=== PATIENT | female | born 1985 | race Caucasian/White ===

== ENCOUNTER 2020-07-21 13:47 | Emergency (ER) | payer MEDICAID ==
--- NOTE | 2020-07-21 14:01 | EDM.PDOC ---
ED HPI GENERAL MEDICAL PROBLEM - General Chief Complaint: Cardiovascular Problem Stated Complaint: CHEST PAIN Time Seen by Provider: 07/21/20 14:02 Source of Information: Reports: Patient, Old Records, RN History Limitations: Reports: No Limitations - History of Present Illness INITIAL COMMENTS - FREE TEXT/NARRATIVE: 35 yo female presents with CP for about an hour that is improving as she arrives. Pain felt initially like her GERD, but then moved from substernally leftward. Had some transient nausea. No SOB or diaphoresis. No personal hx of CAD. Has risk factors including obesity and suboptimally controlled HTN. Has not missed any of her doses of her BP meds. Had a BP check in the clinic in early June with a BP of 150/90. Is not able to tell me the names of her meds. Smokes cigarettes and drinks a lot of Mtn Dew. 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) (none) - Related Data Allergies Allergy/AdvReac Type Severity Reaction Status Date / Time acetaminophen Allergy Hives Verified 09/10/16 03:33 [From Tylenol-Codeine #3] codeine phosphate Allergy Hives Verified 09/10/16 03:33 [From Tylenol-Codeine #3] fenofibrate Allergy Anaphylactic Verified 07/21/20 14:17 Shock hydrocodone Allergy Itching Verified 07/21/20 14:17 metronidazole Allergy Headache Verified 07/21/20 14:17 minocycline Allergy Swelling Verified 07/21/20 14:17 sumatriptan [From Imitrex] Allergy Swollen Verified 09/10/16 03:33 Tongue sumatriptan succinate Allergy Swollen Verified 09/10/16 03:33 [From Imitrex] Tongue topiramate [From Topamax] Allergy Hives Verified 09/10/16 03:33 Home Meds: Home Meds Albuterol Sulfate [Albuterol Sulfate Hfa] 1 inh INH Q4HR PRN 07/21/20 [History] Gabapentin [Neurontin] 1 tab PO DAILY 07/21/20 [History] Gabapentin [Neurontin] 2 tab PO BEDTIME 07/21/20 [History] Levothyroxine 1 tab PO DAILY 07/21/20 [History] Losartan [Cozaar] 75 mg PO DAILY 07/21/20 [History] Meclizine [Antivert] 1 tab PO TID PRN 07/21/20 [History] Nortriptyline 25 mg PO DAILY 07/21/20 [History] Pantoprazole Sodium [Protonix] 1 tab PO DAILY 07/21/20 [History] atorvaSTATin Calcium [Lipitor] 2 tab PO DAILY 07/21/20 [History] tiZANidine [Zanaflex] 1 tab PO BID PRN 07/21/20 [History] Past Medical History - Past Health History Medical/Surgical History: Denies Medical/Surgical History HEENT History: Reports: Sinusitis Respiratory History: Reports: Other (See Below) Other Respiratory History: COUGH; HAS BEEN TAKING TESSALON PEARLS NEEDED Gastrointestinal History: Reports: Hemorrhoids 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: Psychiatric History: Reports: Anxiety, Depression Endocrine/Metabolic History: Reports: Hyperthyroidism - Past Surgical History HEENT Surgical History: Reports: Myringotomy w Tube(s), Tonsillectomy, Other (See Below) GI Surgical History: Reports: Other (See Below) Female Surgical History: Reports: Section, Hysterectomy Social & Family History - Family History Family Medical History: No Pertinent Family History - Caffeine Use Caffeine Use: Reports: Soda ED ROS GENERAL - Review of Systems Review Of Systems: See Below Constitutional: Reports: No Symptoms HEENT: Reports: No Symptoms Respiratory: Reports: No Symptoms Cardiovascular: Reports: Chest Pain Endocrine: Reports: No Symptoms GI/Abdominal: Reports: Nausea. Denies: Abdominal Pain, Diarrhea, Vomiting : Reports: No Symptoms Musculoskeletal: Reports: No Symptoms Skin: Reports: No Symptoms Neurological: Reports: No Symptoms Psychiatric: Reports: No Symptoms ED EXAM, GENERAL - Physical Exam Exam: See Below Exam Limited By: No Limitations General Appearance: Alert, WD/WN, No Apparent Distress, Obese Eye Exam: Bilateral Eye: Normal Inspection Ears: Normal External Exam, Normal Canal, Hearing Grossly Normal, Normal TMs Ear Exam: Bilateral Ear: Auricle Normal, Canal Normal Nose: Normal Inspection, No Blood Throat/Mouth: Normal Inspection, Normal Lips, Normal Oropharynx, Normal Voice, No Airway Compromise Head: Atraumatic, Normocephalic Neck: Normal Inspection Respiratory/Chest: No Respiratory Distress, Lungs Clear, Normal Breath Sounds, No Accessory Muscle Use, Chest Non-Tender Cardiovascular: Regular Rate, Rhythm, No Edema. No: Tachycardia GI/Abdominal: Soft, Non-Tender, No Distention Back Exam: Normal Inspection. No: CVA Tenderness (R), CVA Tenderness (L) Extremities: Normal Inspection, Normal Range of Motion, Non-Tender, No Pedal Edema Neurological: Alert, Oriented, CN II-XII Intact, Normal Cognition, No Motor/Sensory Deficits Psychiatric: Normal Affect, Normal Mood Skin Exam: Warm, Dry, Intact, Normal Color, No Rash #1 Interpretation EKG Date: 07/21/20 Time: 13:50 Rhythm: NSR Rate (Beats/Min): 93 [place]: Normal QRS: Normal ST-T: Normal QT: Normal Comparison: NA - No Prior EKG #2 Interpretation EKG Date: 07/21/20 Time: 15:50 Rhythm: NSR Rate (Beats/Min): 86 [place]: Normal P-Wave: Present QRS: Normal ST-T: Normal QT: Normal Comparison: No Change Course - Vital Signs Last Recorded V/S: Last Vital Signs Temp Pulse Resp BP 148/101 H 07/21/20 15:15 Pulse Ox - Orders/Labs/Meds Orders: Active Orders 24 hr Category Date Time Status Cardiac Monitoring [RC] .As Directed Care 07/21/20 13:50 Active EKG Documentation Completion [RC] ASDIRECTED Care 07/21/20 13:50 Active EKG Documentation Completion [RC] ASDIRECTED Care 07/21/20 15:49 Active Losartan [Cozaar] Med 07/21/20 14:45 Active 25 mg PO DAILY EKG 12 Lead [EK] Routine Ther 07/21/20 13:49 Ordered EKG 12 Lead [EK] Routine Ther 07/21/20 15:49 Ordered Medication Orders Losartan Potassium (Cozaar) 25 mg PO DAILY GAVIN Last Admin: 07/21/20 15:15 Dose: 25 mg Documented by: DIFFCAL Labs: Laboratory Tests 07/21/20 07/21/20 07/21/20 Range/Units 14:20 14:20 14:20 WBC 7.9 (3.0-10.3) x10-3/uL RBC 5.27 H (3.60-5.20) x10(6)uL Hgb 15.1 (11.4-15.5) g/dL Hct 44.2 (34.2-48.2) % MCV 83.8 (76.7-100.5) fL MCH 28.6 (23.9-33.9) pg MCHC 34.1 (31.9-34.8) g/dL RDW 14.3 (12.3-16.5) % Plt Count 186 (151-488) x10(3)uL Sodium 139 (135-145) mmol/L Potassium 3.6 (3.5-5.3) mmol/L Chloride 101 (100-110) mmol/L Carbon Dioxide 30 (21-32) mmol/L BUN 8 (7-18) mg/dL Creatinine 0.8 (0.55-1.02) mg/dL Est Cr Clr Drug Dosing TNP Estimated GFR (MDRD) > 60 (>60) BUN/Creatinine Ratio 10.0 (9-20) Glucose 112 (80-116) mg/dL Calcium 9.2 (8.6-10.2) mg/dL Troponin I 12.1 (4.0-60.3) pg/mL 07/21/ Range/Units 16:08 WBC (3.0-10.3) x10-3/uL RBC (3.60-5.20) x10(6)uL Hgb (11.4-15.5) g/dL Hct (34.2-48.2) % MCV (76.7-100.5) fL MCH (23.9-33.9) pg MCHC (31.9-34.8) g/dL RDW (12.3-16.5) % Plt Count (151-488) x10(3)uL Sodium (135-145) mmol/L Potassium (3.5-5.3) mmol/L Chloride (100-110) mmol/L Carbon Dioxide (21-32) mmol/L BUN (7-18) mg/dL Creatinine (0.55-1.02) mg/dL Est Cr Clr Drug Dosing Estimated GFR (MDRD) (>60) BUN/Creatinine Ratio (9-20) Glucose (80-116) mg/dL Calcium (8.6-10.2) mg/dL Troponin I 12.0 (4.0-60.3) pg/mL Meds: Medications Generic Name Dose Route Start Last Admin Trade Name Freq PRN Reason Stop Dose Admin Losartan Potassium 25 mg 07/21/20 14:45 07/21/20 15:15 Cozaar PO 25 mg DAILY GAVIN Administration Discontinued Medications Generic Name Dose Route Start Last Admin Trade Name Freq PRN Reason Stop Dose Admin Al Hydroxide/Mg Hydroxide 30 ml 07/21/20 14:46 07/21/20 15:16 Mag-Al Susp PO 07/21/20 14:47 30 ml NOW STA Administration Al Hydroxide/Mg Hydroxide 30 ml 07/21/20 15:48 07/21/20 16:00 Mag-Al Susp PO 07/21/20 15:49 30 ml NOW STA Administration Aspirin 324 mg 07/21/20 14:45 07/21/20 15:16 Aspirin PO 07/21/20 14:46 324 mg ONETIME ONE Administration - Re-Assessments/Exams Free Text/Narrative Re-Assessment/Exam: 07/21/20 15:56 Had an increase in her "heart burn" sx's after receiving her ASA 324 mg and Maalox 30 ml. We gave her an additional dose of Maalox and repeated her EKG whic was normal without any evidence of ischemia. Departure - Departure Time of Disposition: 16:45 Disposition: Home, Self-Care 01 Condition: Fair Clinical Impression: GERD (gastroesophageal reflux disease) Qualifiers: Esophagitis presence: without esophagitis Qualified Code(s): K21.9 - Gastro- esophageal reflux disease without esophagitis HTN (hypertension) Qualifiers: Hypertension type: unspecified Qualified Code(s): I10 - Essential (primary) hypertension Instructions: Gastroesophageal Reflux Disease, Adult Referrals: Gretchen Shook NP [Primary Care Provider] - Forms: ED Department Discharge Additional Instructions: Increase your losartan to 100 mg every day from your current 75 mg. Take omeprazole 40 mg daily. Avoid tobacco, carbonated beverages, or eating in the evening. Recheck with your provider within the week. Avoid also salt or salty foods. Return if worse. Sepsis Event Note (ED) - Focused Exam Vital Signs: Vital Signs BP 07/21/20 15:15 148/101 H - My Orders Last 24 Hours: My Active Orders 07/21/20 13:49 EKG 12 Lead [EK] Routine 07/21/20 13:50 Cardiac Monitoring [RC] .As Directed EKG Documentation Completion [RC] ASDIRECTED 07/21/20 14:45 Losartan [Cozaar] 25 mg PO DAILY 07/21/20 15:49 EKG Documentation Completion [RC] ASDIRECTED EKG 12 Lead [EK] Routine - Assessment/Plan Last 24 Hours: My Active Orders 07/21/20 13:49 EKG 12 Lead [EK] Routine 07/21/20 13:50 Cardiac Monitoring [RC] .As Directed EKG Documentation Completion [RC] ASDIRECTED 07/21/20 14:45 Losartan [Cozaar] 25 mg PO DAILY 07/21/20 15:49 EKG Documentation Completion [RC] ASDIRECTED EKG 12 Lead [EK] Routine
[2020-07-21] MEDS ORDERED: Aspirin 81 MG Tab.Chew PO ONE (14:45)
[2020-07-21] MEDS ORDERED: Losartan 25 MG Tab PO SCH (14:45)
[2020-07-21] MEDS ORDERED: Aluminum Hydroxide/Magnesium Hydroxide Susp 30 ML Cup PO STA ×2 (14:46→15:48)
[2020-07-21 19:27] VITALS: BP 162/111; PULSE 94
== END 2020-07-21 16:50 | disposition home or self-care (01) ==
LOC: FB.ED 13:47
DX: K21.9 Gastro-esophageal reflux disease without esophagitis (principal); I10 Essential (primary) hypertension; E05.90 Thyrotoxicosis, unspecified without thyrotoxic crisis or storm; Z88.6 Allergy status to analgesic agent; Z88.5 Allergy status to narcotic agent; Z88.8 Allergy status to other drugs, medicaments and biological substances; Z79.899 Other long term (current) drug therapy
CPT/HCPCS: 36415; 80048; 84484; 85027; 93005; 99283-25; A9270-GY

== ENCOUNTER 2021-11-18 23:28 | Emergency (ER) | payer MEDICAID ==
[2021-11-19] VITALS: PULSE 84
[2021-11-19] MEDS ORDERED: Ketorolac 30 MG/ML SDV IVPUSH ONE (00:01)
[2021-11-19] MEDS ORDERED: Metoclopramide 10 MG/2 ML SDV IVPUSH ONE (00:01)
[2021-11-19] MEDS ORDERED: cloNIDine 0.1 MG Tab PO ONE (00:01)
[2021-11-19] MEDS ORDERED: Sodium Chloride 0.9% 1,000 ML IV ONE (00:01)
[2021-11-19] MEDS ORDERED: hydrOXYzine HCl 50 MG/ML SDV IM ONE (00:59)
[2021-11-19] MEDS ORDERED: diphenhydrAMINE 50 MG/ML SDV IVPUSH ONE (00:59)
[2021-11-19] MEDS ORDERED: methylPREDNISolone Sodium Succinate 125 MG/2 ML SDV IVPUSH ONE (00:59)
[2021-11-19 01:38] VITALS: BP 166/91
== END 2021-11-19 02:10 | disposition home or self-care (01) ==
LOC: FB.ED 23:28
DX: G44.009 Cluster headache syndrome, unspecified, not intractable (principal); E78.00 Pure hypercholesterolemia, unspecified; I10 Essential (primary) hypertension; K21.9 Gastro-esophageal reflux disease without esophagitis; E03.9 Hypothyroidism, unspecified; E66.9 Obesity, unspecified; Z72.0 Tobacco use; Z88.8 Allergy status to other drugs, medicaments and biological substances; Z88.5 Allergy status to narcotic agent; Z79.899 Other long term (current) drug therapy; Z79.84 Long term (current) use of oral hypoglycemic drugs; Z68.37 Body mass index [BMI] 37.0-37.9, adult
CPT/HCPCS: 96372; 96374; 96375; 99283; 99283-25; A9270-GY; J1200; J1885; J2765; J2930; J3410; J7030

== ENCOUNTER 2024-06-30 22:59 | Emergency (ER) | payer OTHER ==
[2024-06-30 23:26] VITALS: BP 153/105; PULSE 79
[2024-06-30] MEDS: Ketorolac 30 MG/ML SDV IM ONE (23:32)
== END 2024-07-01 00:05 | disposition home or self-care (01) ==
LOC: FB.ED 22:59
DX: S46.812A Strain of other muscles, fascia and tendons at shoulder and upper arm level, left arm, initial encounter (principal); I10 Essential (primary) hypertension; E78.00 Pure hypercholesterolemia, unspecified; K21.9 Gastro-esophageal reflux disease without esophagitis; E66.9 Obesity, unspecified; E03.9 Hypothyroidism, unspecified; Z90.49 Acquired absence of other specified parts of digestive tract; Z90.710 Acquired absence of both cervix and uterus; F17.210 Nicotine dependence, cigarettes, uncomplicated; Z79.899 Other long term (current) drug therapy; Z79.84 Long term (current) use of oral hypoglycemic drugs; Z79.890 Hormone replacement therapy; Z88.8 Allergy status to other drugs, medicaments and biological substances; Z88.1 Allergy status to other antibiotic agents; Z88.5 Allergy status to narcotic agent; X50.9XXA Other and unspecified overexertion or strenuous movements or postures, initial encounter
CPT/HCPCS: 96372; 99283; J1885